=== PATIENT | male | born 1955 | race Caucasian/White ===

== ENCOUNTER 2016-08-09 19:13 | Emergency (ER) | payer OTHER ==
[2016-08-09 17:32] LABS: BASOPHILS 0.3 %; BASOPHILS ABSOLUTE 0.02 10/3/uL (0.0-0.16); EOSINOPHILS ABSOLUTE 0.14 10/3/uL (0.0-0.53); ER CBC TAT 0 Hrs 10 Mins; HEMOGLOBIN 14.6 g/dL (13.6-17.8); IMMATURE GRANULOCYTES 0.1 %; IMMATURE GRANULOCYTES ABSOLUTE 0.01 10/3/uL (0.0-0.11); LYMPHOCYTES 19.6 %; LYMPHOCYTES ABSOLUTE 1.35 10/3/uL (0.67-4.30); MEAN CORPUS HGB CONC 35.1 g/dL (32.0-36.0); MEAN CORPUSCULAR HEMOGLOB 29.7 pg (26.0-34.0); MEAN CORPUSCULAR VOLUME 84.6 fL (80-100); MONOCYTES 6.1 %; MONOCYTES ABSOLUTE 0.42 10/3/uL (0.21-1.20); NEUTROPHILS 71.9 %; NEUTROPHILS ABSOLUTE 4.96 10/3/uL (2.02-8.40); PLATELET COUNT 188 10/3/uL (150-400); RED CELL COUNT 4.92 10/6/uL (4.7-6.1); WHITE BLOOD CELLS 6.9 10/3/uL (4.5-10.5)
[2016-08-09 17:36] LABS: HEMATOCRIT 41.6 % (40.0-51.0); MANUAL DIFF NO %
[2016-08-09 17:53] LABS: A/G RATIO 1.3 (0.7-1.9); ALBUMIN 3.7 G/DL (3.5-5.0); CALCIUM, SERUM 8.5 MG/DL (8.5-10.4); CHLORIDE, SERUM 92 MMOL/L (96-112); CO2 (CARBON DIOXIDE) 26 MMOL/L (24-34); GFR AFRICAN AMERICAN 50 ML/MIN (>=60); GFR NON AFRICAN AMERICAN 43 ML/MIN (>=60); GLOBULIN 2.9 G/DL (2.5-4.1); POTASSIUM, SERUM 4.2 MMOL/L (3.5-5.3); SGOT(AST) 23 U/L (5-40); SGPT(ALT) 28 U/L (5-65); SODIUM, SERUM 130 MMOL/L (135-148); TOTAL BILIRUBIN 0.6 MG/DL (0-1.2); TOTAL PROTEIN 6.6 G/DL (6.0-8.5)
[2016-08-09 17:58] LABS: ALKALINE PHOSPHATASE 207 U/L (45-117); BUN (BLOOD UREA NITROGEN) 29 MG/DL (6-23); GLUCOSE, SERUM 286 MG/DL (60-99)
[~2016-08-09 19:13] MED LIST: ALDACTONE PO; ASA5GR PO; ASAB PO; ASABAYER PO; AT25 PO; ATV.5 PO; ATV1; AUG875 PO; B1100 PO; BACDS PO; CENTRUM TAB1 TAB PO; CINNAMONPO PO; CLEOCIN300 MG PO; CLINDA150; COZ50 PO; CYANO1000T PO; DEMA100 PO; DURA100 TOP; DURA50 TOP; DURA75 TOP; EFFEXOR XR150 MG PO; ENDOCET1 TA3 PO; ENULOSE PO; FLOMAX4 PO; GLUCPH PO; GLUCPH8 PO; HUMALOG SC; HUMALOGPEN SC; HYZAAR 100/25 T1 TAB PO; IMDUR30 PO; KLONO1 PO; KLONO2; KLONO2 PO; KLOR-CON M2020 MEQ PO; L40 PO; L80 PO; LANTUS SC; LANTUSCART SC; LEVAQUIN750 MG PO; LOP25 PO; LORTAB10 PO; MSCONTIN PO; MULTIVIT/MIN PO; NEO-OINT15 NAS; NITROSTAT0.4 MG SL; NORV10 PO; OCEAN NAS; OXYCOD PO; PAXIL40 MG PO; PEXEVA40 MG PO; PRAVAC PO; PRILOSEC40 MG PO; PROAMAT5 PO; PROSCAR5 PO; ROXICODONE30 MG PO; SEPTRA DS1 TAB PO; SILVER SULFADIAZINE TOP; SPIRO50 PO; STOOL SOFTENER PO; TOPXL25 PO; VITAMIN B-121000 MC1 SL; VOLT75 PO; VOLTAREN1 % TOP; ZESTORETIC1 TA1 PO; ZOFRAN4 PO; [UNRECOGNIZED DRUG - OTHER] PO
[2016-08-09 20:15] LABS: ASCORBIC ACID (UR NOT ORDER) NEG (NEG); BILIRUBIN, URINE NEGATIVE (NEG); ER URINALYSIS TAT 0 Hrs 00 Mins; KETONE, URINE NEGATIVE (NEG); LEUKOCYTE ESTERASE(NOT OR NEG (NEG); NITRITE (URINE) NEG (NEG); WBC (NOT ORDERED) (RFLEX) 0 (0-5)
== END 2016-08-09 20:54 | disposition home or self-care (01) ==
LOC: ER 19:13
PROVIDERS: Emergency Medicine
DX: K74.60 Unspecified cirrhosis of liver (principal); E11.65 Type 2 diabetes mellitus with hyperglycemia; I12.9 Hypertensive chronic kidney disease with stage 1 through stage 4 chronic kidney disease, or unspecified chronic kidney disease; N18.9 Chronic kidney disease, unspecified; F32.9 Major depressive disorder, single episode, unspecified; F41.9 Anxiety disorder, unspecified; F17.200 Nicotine dependence, unspecified, uncomplicated; Z79.82 Long term (current) use of aspirin; Z79.899 Other long term (current) drug therapy; Z79.4 Long term (current) use of insulin
CPT/HCPCS: 74176; 80053; 81001; 83690; 85025; 93005; 96374; 99284; A9270-GY; J1170; J2550